=== PATIENT | male | born 1950 | race Caucasian/White ===

== ENCOUNTER → 2021-05-13 14:51 | Outpatient (BNVA) | payer BC, SELFPAY | PROVIDERS: PCP Family Medicine; Visit Provider Internal Medicine ==

== ENCOUNTER 2021-05-27 14:53 | Outpatient (REF) | payer BC, SELFPAY ==
--- NOTE | ~2021-05-27 | MR_ITS ---
EXAMINATION: MR LUMBAR SPINE WITHOUT CONTRAST CLINICAL INFORMATION: Lumbosacral radiculopathy. Bilateral foot numbness and low back pain. COMPARISON: None. TECHNIQUE: MRI of the lumbar spine was obtained using routine sequences without contrast. FINDINGS: VERTEBRAL BODIES AND PARASPINAL STRUCTURES: The marrow signal is within normal limits. There is mild multilevel disc space narrowing and endplate spurring. No compression fractures or subluxations visible. No edema seen within the osseous structures or soft tissues on the STIR-weighted acquisition. The paraspinal soft tissues appear normal. Mild degenerative changes of the sacroiliac joints with bony spurring. CONUS MEDULLARIS AND CAUDA EQUINA: Normal, terminating at the level of L2. No lower cord signal abnormality is seen. The cauda equina nerve roots are normal. SPINAL LEVELS: L1-L2: No significant disc pathology, central canal stenosis, or foraminal narrowing. L2-L3: Mild disc space narrowing and disc bulge with mild facet arthropathy. No central canal stenosis or significant foraminal encroachment. L3-L4: Well-hydrated normal appearance of the disc with slight bulging. [id number] facet arthropathy. No central canal stenosis. Mild bilateral foraminal narrowing. L4-L5: Mild diffuse disc bulge and hypertrophic facet arthropathy without central canal stenosis. Mild left and [id number] right foraminal narrowing. L5-S1: Mild posterior disc bulge and endplate spurring with moderate facet arthropathy. Bulging disc mildly impresses upon the right S1 nerve root. Mild right foraminal encroachment due to bulging disc and endplate spurring. No central canal stenosis. MR/MR lumbar spine wo con IMPRESSION: Mild lumbar spondylosis without central canal stenosis. No focal disc protrusions. Mild to moderate multilevel foraminal narrowing. Bulging disc mildly impresses upon the right S1 nerve root in the subarticular zone at the L5-S1 level with moderate facet arthrosis.
== END 2021-05-27 14:54 | disposition home or self-care (01) ==
LOC: HO.MRI 14:53
PROVIDERS: PCP Family Medicine; Visit Provider Internal Medicine
DX: M54.17 Radiculopathy, lumbosacral region (principal)
CPT/HCPCS: 72148

== ENCOUNTER 2021-05-29 06:20 | Outpatient (REF) | payer BC, SELFPAY ==
--- NOTE | ~2021-05-29 | FL_ITS ---
EXAMINATION: XR FLUOROSCOPY WITH IMAGES CLINICAL INFORMATION: Spondylosis without myelopathy or radiculopathy. COMPARISON: None. TECHNIQUE: Fluoroscopy performed by Dr. Evangelista Urena. Fluoroscopy time: 0.6 minutes DAP: 5.76 Gycm2 Images: 4 FINDINGS: There are needles positioned lateral to bilateral pedicles at L4, L5 vertebra with contrast opacifying the soft tissues for pain management. Visualized bones and the disc levels are normal. FL/FL guidance in treatment room IMPRESSION: Fluoroscopy provided to referring physician for pain management.
== END 2021-05-29 06:21 | disposition home or self-care (01) ==
LOC: HO.RADIR 06:20
PROVIDERS: Visit Provider Internal Medicine
DX: M47.817 Spondylosis without myelopathy or radiculopathy, lumbosacral region (principal)
CPT/HCPCS: 64493; 64494; Q9967

== ENCOUNTER → 2021-06-07 11:33 | Outpatient (BNVA) | payer BC, MEDICARE, SELFPAY | PROVIDERS: PCP Family Medicine; Visit Provider Internal Medicine ==

== ENCOUNTER 2021-07-24 06:11 | Outpatient (REF) | payer MEDICARE, SELFPAY ==
--- NOTE | ~2021-07-24 | FL_ITS ---
EXAMINATION: XR FLUOROSCOPY WITH IMAGES CLINICAL INFORMATION: M47.817 - Spondylosis without myelopathy or radiculopathy COMPARISON: MR lumbar spine 05/27/2021 TECHNIQUE: Fluoroscopy performed by Dr. Urena. Fluoroscopy time: 0.5 minutes DAP: 2.806 Gycm2 Images: 3 FINDINGS: There is an electrode needle at outer aspect right L4 neural foramen. FL/FL guidance in treatment room IMPRESSION: Fluoroscopy for pain management procedure.
== END 2021-07-24 06:12 | disposition home or self-care (01) ==
LOC: HO.RADIR 06:11
PROVIDERS: Visit Provider Internal Medicine
DX: M47.817 Spondylosis without myelopathy or radiculopathy, lumbosacral region (principal)
CPT/HCPCS: 64555; C1778

== ENCOUNTER → 2021-08-09 08:15 | Outpatient (BNVA) | payer MEDICARE, SELFPAY | PROVIDERS: PCP Family Medicine; Visit Provider Internal Medicine | DX: M47.817 Spondylosis without myelopathy or radiculopathy, lumbosacral region (principal) | CPT/HCPCS: 99212 ==

== ENCOUNTER → 2021-09-23 10:43 | Outpatient (BNVA) | payer MEDICARE, SELFPAY | PROVIDERS: PCP Family Medicine; Visit Provider Internal Medicine | DX: M47.817 Spondylosis without myelopathy or radiculopathy, lumbosacral region (principal) | CPT/HCPCS: 99212 ==

== ENCOUNTER 2021-10-10 16:07 | Outpatient (REF) | payer MEDICARE, SELFPAY ==
[2021-10-10 16:26] LABS: MANUAL DIFF FLAG NO
[2021-10-10 17:10] LABS: Basophils Percent Auto 0.4 % (0-2); Eosinophils Absolute Auto 0.1 X10*3/uL (0.0-0.4); Eosinophils Percent Auto 1.9 % (0-4); Hematocrit 41.9 % (42.0-52.0); Hemoglobin 14.1 g/dl (14.0-18.0); Imm Gran Abs Auto 0.02 X10*3/uL (0.00-0.03); Imm Gran Pct Auto 0.4 % (0.0-0.4); Lymphocytes Percent Auto 36.7 % (20-40); Mean Corpuscular HGB Conc 33.7 g/dl (31.0-36.0); Mean Corpuscular Hemoglobin 29.6 pg (27.0-33.0); Mean Corpuscular Volume 87.8 fL (80.0-98.0); Mean Platelet Volume 9.1 fL (9.4-12.4); Monocytes Absolute Auto 0.5 X10*3/uL (0.1-1.2); Monocytes Percent Auto 10.1 % (2-11); Neutrophils Absolute Auto 2.7 x10*3/uL (2.0-8.3); Neutrophils Percent Auto 50.5 % (45-73); Platelet Count 206 X10*3/uL (160-400); Red Blood Count 4.77 X10*6/uL (4.60-5.80); Red Cell Distribution Width 12.6 % (11.0-16.0); White Blood Count 5.4 X10*3/uL (4.8-10.8)
[2021-10-10 17:30] LABS: Alanine Aminotransferase 28 U/L (0-40); Albumin Level 4.5 g/dL (3.5-5.0); Alkaline Phosphatase 60 U/L (39-117); Amylase 45 U/L (28-100); Aspartate Amino Transferase 22 U/L (5-37); Bilirubin Direct 0.5 mg/dL (0.0-0.5); Bilirubin Total 1.6 mg/dL (0.0-1.0); Lipase 31 U/L (8-78); Total Protein 7.2 g/dL (6.5-8.0)
== END 2021-10-10 16:08 | disposition home or self-care (01) ==
LOC: HO.LAB 16:07
PROVIDERS: Visit Provider Internal Medicine Gastroenterology
DX: K57.92 Diverticulitis of intestine, part unspecified, without perforation or abscess without bleeding (principal)
CPT/HCPCS: 36415; 80076; 82150; 83690; 85025

== ENCOUNTER 2021-10-14 11:22 | Outpatient (REF) | payer MEDICARE, SELFPAY | END 2021-10-14 11:23 | disposition home or self-care (01) | LOC: HO.LNP 11:22 | PROVIDERS: Visit Provider Internal Medicine Gastroenterology | DX: K57.92 Diverticulitis of intestine, part unspecified, without perforation or abscess without bleeding (principal) | CPT/HCPCS: 87045; 87046; 87177; 87209 ==

== ENCOUNTER 2021-10-25 07:16 | Outpatient (REF) | payer MEDICARE, SELFPAY ==
[2021-10-25 09:11] LABS: Blood Urea Nitrogen 15 mg/dL (9-16); Estimated Glomerular Filt Rate > 60
== END 2021-10-25 07:17 | disposition home or self-care (01) ==
LOC: HO.CT 07:16
PROVIDERS: PCP Internal Medicine Gastroenterology; Visit Provider Internal Medicine Gastroenterology
DX: K57.92 Diverticulitis of intestine, part unspecified, without perforation or abscess without bleeding (principal)
CPT/HCPCS: 36415; 82565; 84520

== ENCOUNTER 2021-11-04 09:49 | Outpatient (REF) | payer MEDICARE, SELFPAY ==
--- NOTE | ~2021-11-04 | CT_ITS ---
EXAMINATION: CT ABDOMEN AND PELVIS WITH CONTRAST CLINICAL INFORMATION: Diverticulitis of intestine. COMPARISON: None TECHNIQUE: Multidetector volumetric images were obtained from the superior aspect of the liver through the pubic symphysis following administration 85 mL of Omnipaque 350 intravenous contrast. Sagittal and coronal reformatted images were obtained on the technologist's workstation. Oral contrast: No This CT examination was performed using dose optimization techniques as appropriate, variously including the following: *Automated exposure control *Adjustment of mA and/or kV according to patient size (this includes techniques or standardized protocols for targeted exams where dose is matched to indication/reason for exam; i.e. extremities or head) *Use of iterative reconstruction technique DLP: 947 mGy-cm FINDINGS: LUNG BASES: The lung bases are clear. The heart size is normal. LIVER, GALLBLADDER, AND BILIARY TREE: The liver is normal in size, shape, and attenuation. There is a 1 cm lesion in the right hepatic lobe image 30/3, too small to correctly characterize. No intrahepatic ductal dilatation seen. The gallbladder is unremarkable with no evidence of radiopaque gallstones, gallbladder wall thickening, or obvious pericholecystic inflammatory changes. PANCREAS: Unremarkable. SPLEEN: Unremarkable. ADRENAL GLANDS: Unremarkable. KIDNEYS AND URETERS: The kidneys are normal in size, shape, and attenuation. No hydronephrosis, hydroureter, or calculi seen. No perinephric stranding. BLADDER: There is mild anterior bladder wall thickening. No radiopaque calculi seen. There is moderate prostate gland extending into the base of the bladder. GASTROINTESTINAL TRACT: There is anastomotic suture proximal sigmoid colon with widely patent lumen. There is scattered stool, diverticula and gas seen throughout the colon without distention. The small bowel loops are normal caliber. There is nonspecific mild mural thickening in a segment of small bowel likely proximal jejunum on axial image 31/3 through 40/3. Appendix is normal caliber. No free air or free fluid seen. ABDOMINAL WALL: No lytic or sclerotic process seen. LYMPH NODES: Normal. VASCULAR: Unremarkable. PELVIC VISCERA: Unremarkable. OSSEOUS STRUCTURES: No lytic or sclerotic process seen. There is mild ventral spondylosis lower dorsal spine. CT/CT abdomen pelvis w con IMPRESSION: Scattered colonic diverticulosis without diverticulitis. Mild constipation. Anastomotic suture line along the sigmoid colon with widely patent lumen is noted. There is mild mural thickening in a segment of small bowel loop of what appears to be a proximal jejunum. Differential diagnosis includes enteritis or normal peristaltic segment. No fat stranding seen. Fleischner guidelines were followed.
[2021-11-04] MEDS: iohexoL 350 MG/ML 100 ML INFUS..BTL IV (10:22)
== END 2021-11-04 09:50 | disposition home or self-care (01) ==
LOC: HO.CT 09:49
PROVIDERS: Visit Provider Internal Medicine Gastroenterology
DX: K57.92 Diverticulitis of intestine, part unspecified, without perforation or abscess without bleeding (principal)
CPT/HCPCS: 74177; Q9967

== ENCOUNTER 2021-12-05 07:31 | Outpatient (REF) | payer MEDICARE, SELFPAY ==
--- NOTE | ~2021-12-05 | US_ITS ---
EXAMINATION: US ABDOMEN COMPLETE CLINICAL INFORMATION: Abnormal liver seen on CT. COMPARISON: CT abdomen and pelvis 11/04/2021. TECHNIQUE: Real-time imaging of the abdominal viscera. FINDINGS: PANCREAS: Visualized portions of the pancreas appear unremarkable without mass or peripancreatic inflammatory change appreciated. Portions of the head and tail are obscured by overlying bowel gas. ABDOMINAL AORTA: The proximal, mid, and distal segments are normal in caliber. INFERIOR VENA CAVA: Visualized portions are normal. LIVER: The liver is normal in size. The liver contour is normal. Parenchymal echogenicity is normal. There are multiple cysts present within the liver the largest of which measures approximately 1.1 x 1.3 x 1.4 cm in size and containing septations and no internal vascularity. There is no intrahepatic biliary duct dilatation seen. GALLBLADDER: There is a 2 mm nonmobile echogenic focus consistent with small cholesterol polyp. The gallbladder is physiologically distended without evidence of stones, sludge, wall thickening or pericholecystic fluid. COMMON BILE DUCT: Normal in caliber measuring 0.3 cm in diameter. RIGHT KIDNEY: Normal. No hydronephrosis. No renal calculi or focal parenchymal lesions. The kidney measures 11.6 cm in maximum dimension. LEFT KIDNEY: There is a 7 mm cyst seen within the midpole No hydronephrosis or renal calculi. The kidney measures 11.5 cm in maximum dimension. SPLEEN: Normal. The spleen measures 11.1 cm in maximum dimension. FREE FLUID: None. US/US abdomen complete IMPRESSION: Hepatic cysts with one being complex with septations. Gallbladder cholesterol polyp. Subcentimeter left renal cyst.
== END 2021-12-05 07:32 | disposition home or self-care (01) ==
LOC: HO.US 07:31
PROVIDERS: Visit Provider Internal Medicine Gastroenterology
DX: R93.2 Abnormal findings on diagnostic imaging of liver and biliary tract (principal)
CPT/HCPCS: 76700

== ENCOUNTER 2023-02-27 07:29 | Outpatient (REF) | payer MEDICARE, SELFPAY ==
--- NOTE | ~2023-02-27 | US_ITS ---
EXAMINATION: US ABDOMEN COMPLETE CLINICAL INFORMATION: Cholesterolosis of the gallbladder, liver cyst. COMPARISON: Ultrasound abdomen complete dated 12/05/2021. CT abdomen and pelvis with contrast dated 11/04/2021. TECHNIQUE: Real-time imaging of the abdominal viscera. FINDINGS: PANCREAS: Normal. ABDOMINAL AORTA: The proximal, mid, and distal segments are normal in caliber. INFERIOR VENA CAVA: Visualized portions are normal. LIVER: The liver is normal in size. The liver contour is normal. There is diffuse increased liver parenchymal echogenicity, consistent with hepatic steatosis. There is a tiny septated cyst in the liver measuring 0.3 cm. There is no intrahepatic biliary duct dilatation seen. GALLBLADDER: Again seen is a gallbladder polyp that has increased from 2 to 3 mm in size. The gallbladder is physiologically distended without evidence of stones, sludge, wall thickening or pericholecystic fluid. COMMON BILE DUCT: Normal in caliber measuring 0.2 cm in diameter. RIGHT KIDNEY: Normal. No hydronephrosis. No renal calculi or focal parenchymal lesions. The kidney measures 12.2 cm in maximum dimension. LEFT KIDNEY: There is a benign 1.4 cm left Bosniak class I cyst which needs no additional imaging or follow-up. No hydronephrosis or renal calculi. The kidney measures 11.3 cm in maximum dimension. SPLEEN: Normal. The spleen measures 10.6 cm in maximum dimension. FREE FLUID: None. US/US abdomen complete IMPRESSION: 1. Hepatic steatosis. 2. Tiny 3 mm gallbladder polyp.
== END 2023-02-27 07:30 | disposition home or self-care (01) ==
LOC: HO.US 07:29
PROVIDERS: PCP Family Medicine; Visit Provider Internal Medicine Gastroenterology
DX: K76.89 Other specified diseases of liver (principal); K82.4 Cholesterolosis of gallbladder
CPT/HCPCS: 76700

== ENCOUNTER 2023-12-16 09:05 | Outpatient (REF) | payer MEDICARE, SELFPAY ==
--- NOTE | ~2023-12-16 | US_ITS ---
EXAMINATION: US ABDOMEN COMPLETE CLINICAL INFORMATION: Liver cyst. COMPARISON: Ultrasound abdomen complete 02/27/2023 and 12/05/2021. CT abdomen and pelvis 11/04/2021. TECHNIQUE: Real-time imaging of the abdominal viscera. Technically difficult study secondary to bowel gas. FINDINGS: PANCREAS: The head and body appear normal. The tail is obscured by bowel gas. ABDOMINAL AORTA: Visualized portions are normal. INFERIOR VENA CAVA: Visualized portions are normal. LIVER: The liver is normal in size. The liver contour is normal. Benign-appearing septated cyst in the hepatic dome. No follow-up imaging is recommended. Increased echogenicity suggesting hepatic steatosis. There is no intrahepatic biliary duct dilatation seen. GALLBLADDER: No cholelithiasis or evidence of acute cholecystitis. Polyp in the body measures 0.2 cm with low risk sessile morphology. Per 2021 SRU guidelines: no follow-up is recommended. This is stable compared to prior. COMMON BILE DUCT: Normal in caliber measuring 0.3 cm in diameter. RIGHT KIDNEY: Normal. No hydronephrosis. No renal calculi or focal parenchymal lesions. The kidney measures 11.0 cm in maximum dimension. LEFT KIDNEY: No hydronephrosis or renal calculi. The kidney measures 11.7 cm in maximum dimension. 1.0 cm simple cyst in the mid kidney. No follow-up imaging is recommended. SPLEEN: Normal. The spleen measures 9.6 cm in maximum dimension. FREE FLUID: None. US/US abdomen complete IMPRESSION: Stable benign-appearing liver cyst. No follow-up imaging is recommended. Hepatic steatosis.
== END 2023-12-16 09:06 | disposition home or self-care (01) ==
LOC: HO.US 09:05
PROVIDERS: PCP Family Medicine; Visit Provider Internal Medicine Gastroenterology
DX: K76.89 Other specified diseases of liver (principal)
CPT/HCPCS: 76700

== ENCOUNTER 2025-04-03 10:15 | Outpatient (REF) | payer MEDICARE, SELFPAY ==
--- OUTSIDE RECORDS SUMMARY | 2025-04-02 23:59 | XMS_ITS | Continuity of Care Document ---
Author Organization [facility], [place], operated by [facility] Address [address] [place] [address]- Care Team Providers Care Line Camera Operator Name Role Phone Mariely STRICKLAND, Donavan Mueller [id number] Date[facility]s): [facility]/03/25 - 04/02/25 [facility] [place] [address] [place] [address]- Encounter Type: Triage Allergies, Adverse Reactions, Alerts Substance Criticality Severity Reaction Reaction Severity Status spironolactone 1, 2 Active KETAN inhibitors 3 cough Act deepali Norvasc 4 Active 1memory loss 2Breast tenderness 3Causes cough 4dizziness Immunizations Given and Recorded Vaccine Date Status Refusal Reason influenza virus vaccine, inactivated 06/22/20 [facility] rded tetanus/diphtheria/pertussis, acel(Tdap) 09/16/16 Given tetanus-diphtheria toxoids (Td) 1 08/04/02 Given 1Admin Note: per [facility] records Medications atenolol 25 mg oral tablet 25 mg, 1, tablet, By Mouth, Daily, # 90 tablet, Refills 0, Tot. Refills 0, Maintenance, 02/19/25 11:08:00 AM EDT, Route to Pharmacy Electronically, [id number], Partial fill upon patient request if the prescription is for a schedule II opioid drug., 186, cm, 06/09/24 11:08:00 EDT, Height, 95,kg, 02/03/24 20:28:00 EDT, Dry Weight Start Date: 02/19/25 Status: Ordered Quantity: 90.0 Unit: tablet Repeat number: 1 CeleBREX 200 mg oral capsule 1 capsule = 200 mg, By Mouth, Daily, # 90 capsule, 3 Refills, Maintenance, 03/06/25 2:59:00 PM EDT, Capsule, [facility] #[id number], Partial fill upon patient request if the prescription is for a schedule II opioid drug., 186, cm, 06/09/24 11:08:00 EDT, Height, 95, kg, 02/03/24 20:28:00 EDT, Dry Weight Start Date: 03/06/25 Status: Ordered Quantity: 90.0 Unit: capsule Repeat number: 4 Glucosamine Chondroitin Advanced 2 times a day, 0 Refills, Maintenance, 05/08/16 8:48:38 AM EDT Start Date: 05/08/16 Status: Ordered Repeat number: 1 Melatonin Daily at bedtime, 0 Refills, Maintenance, 03/29/19 2:14:52 PM EDT Start Date: 03/29/19 Status: Ordered Repeat number: 1 multivitamin Lipotropic with Multivitamins oral capsule 1, capsule, By Mouth, Daily, 0 Refills Start Date: 07/25/08 Status: Ordered Repeat number: 1 propranolol 10 mg oral tablet 10 mg, 1, tablet, By Mouth, 3 times a day, PRN, # 90 tablet, Refills 11, Tot. Refills 11, Maintenance, tremor, 09/01/24 6:13:00 AM EST, Route to Pharmacy Electronically, [id number], Partial fill upon patient request if the prescription is for a schedule II opioid drug., 186, cm, 06/09/24 11:08:00 EDT, Height, 95, kg, 02/03/24 20:28:00 EDT, Dry Weight Start Date: 09/01/24 Status: Ordered Quantity: 90.0 Unit: tablet Repeat number: 12 traZODone 50 mg oral tablet 50 mg, 1, tablet, By Mouth, Daily at bedtime, PRN, # 90 tablet, Refills 3, Tot. Refills 3, Maintenance, Insomnia, 09/17/24 6:00:00 AM EST, Route to Pharmacy Electronically, [id number], 186, cm, 06/09/24 11:08:00 EDT, Height, 95, kg, 02/03/24 20:28:00 EDT, Dry Weight Start Date: 09/17/24 Status: Ordered Quantity: 90.0 Unit: tablet Repeat number: 4 Vitamin B12 1000 mcg oral tablet 1 tablet = 1,000 mcg, By Mouth, Daily, # 90 tablet, 0 Refills, Maintenance, 09/05/22 3:24:00 PM EST,Tablet, Partial fill upon patient request if the prescription is for a schedule II opioid drug. Start Date: 09/05/22 Status: Ordered Quantity: 90.0 Unit: tablet Repeat number: 1 Vitamin C 500 mg oral tablet 1 tablet = 500 mg, By Mouth, Daily, # 90 tablet, 0 Refills, Maintenance, 09/05/22 3:23:00 PM EST, Tablet, Partial fill upon patient request if the prescription is for a schedule II opioid drug. Start Date: 09/05/22 Status: Ordered Quantity: 90.0 Unit: tablet Repeat number: 1 Vitamin D3 oral tablet 1 tablet = 10 mcg, By Mouth, Daily, 0 Refills, Maintenance, 09/05/22 3:25:00 PM EST, Partial fill upon patient request if the prescription is for a schedule II opioid drug. Start Date: 09/05/22 Status: Ordered Repeat number: 1 ZINC PICOLINATE 30MG WITH COPPER 2MG ZINC PICOLINATE 30MG WITH COPPER 2MG, See Instructions, Refills 0, Maintenance, 09/05/22 3:26:00 PM EST, Supply Start Date: 09/05/22 Status: Ordered Repeat number: 1 Problem List Condition Confirmation Course Effective Dates Status H ealth Status Informant Abdominal pain Confirmed Active BPH associated with nocturia Confirmed Active CAT scan abnormal 1 Confirmed 2003 Active Cervical spondylosis Confirmed Active Contact dermatitis due to poison abbie Confirmed Active COVID-19 2 Confirmed 11/25/22 Active Depression Confirmed 2007 Active Diverticulitis Confirmed Active Diverticulosis Confirmed Active Dizziness Confirmed Active Hypertension Confirmed Active Insomnia Confirmed Active Osteoarthritis Confirmed Active Encounter for preventive health examination Confirmed Active Tremor Confirmed Active Weight loss Confirmed 2007 Active 1CT of the Chest shows two small subcentimeter right middle lobe nodules 2Problem added by Discern Expert Social History Social History Type Response Smoking Status Former smoker; Tobac co user in household: No; Previous treatment: Hypnosis; Interested in cessation: No entered on: 09/18/17 Sex Sex Representation Male (finding) Patient Care team information Care Team Personnel Name: Ruth Richards RN Position: [facility] RN Member Role: Primary Care Nurse Name: Donavan Schuster MD Position: [facility] Physician - Primary Care Member Role: PCP Address: [address] [place] [id number]- Telecom: Name: Charissa Casas Position: S RN Member Role: Primary Care Nurse Name: Lillian Estrada RN Position: [facility] RN Member Role: Primary Care Nurse Care Team Related Persons Name: KENYA DOUGLASA Insurance Providers Guarantor name: COOPER DOUGLAS [facility] Information #: 1 Payer: MEDICARE B Payer Identifier: MARTA Member Number: [id number] Group Number: Subscriber Identifier: [id number] Relationship to Subscriber: self Coverage Type: NA Coverage Verification Date: NA Telecom: NA Address: [facility] Information #: 2 Payer: MEDEX SECONDARY ONLY Payer Identifier: MARTA Member Number: [id number] Group Number: Subscriber Identifier: [id number] Relationship to Subscriber: self Coverage Type: Medicare Other Coverage Verification Date: NA Telecom: NA Address:
--- NOTE | ~2025-04-03 | US_ITS ---
CLINICAL HISTORY: liver cyst, elevated LFTs US abdomen complete Comparison: None provided Findings: The visualized pancreas is normal. The aorta and inferior vena cava are normal caliber. The liver is normal in size and echotexture. There is no intrahepatic bile duct dilatation. The common duct is 3 mm in diameter. The gallbladder is normal, with the exception of a benign 2 mm polyp. There is no sonographic Howe sign. The main portal vein is antegrade. The right kidney is 10.1 cm in length. The left kidney is 10.8 cm in length. 11 mm midpole cyst noted. The spleen is normal. No ascites. IMPRESSION: No acute process. Previously noted liver cysts not currently identified. No suspicious abnormality. This document has been electronically signed by: Janes Alaniz MD on 04/05/2025 12:55:38
== END 2025-04-03 10:16 | disposition home or self-care (01) ==
LOC: HO.US 10:15
PROVIDERS: Visit Provider Internal Medicine Gastroenterology
DX: K76.89 Other specified diseases of liver (principal); R79.89 Other specified abnormal findings of blood chemistry
CPT/HCPCS: 76700

== ENCOUNTER → 2025-04-03 10:31 | Outpatient (BNV) | payer MEDICARE, SELFPAY | PROVIDERS: Visit Provider Radiology Vascular & Interventional Radiology | DX: R74.01 Elevation of levels of liver transaminase levels (principal); N20.0 Calculus of kidney | CPT/HCPCS: 76700 ==